=== PATIENT | male | born 2000 | race Caucasian/White ===

== ENCOUNTER 2024-12-27 21:53 | Emergency (ER) | payer OTHER ==
[~2024-12-27] VITALS: Ht 175.3 cm; Wt 70.0 kg
[2024-12-27 22:45] VITALS: O2SAT 99
[2024-12-27] MEDS: HALOPERIDOL LACTATE 5MG/ML VIAL IM ONE (22:45)
[2024-12-27] MEDS: LORAZEPAM 2MG/ML UD SYRINGE IM NR (22:45)
[2024-12-27] MEDS: DIPHENHYDRAMINE 50MG/ML VIAL IM ONE (22:45)
[2024-12-27 22:55] LABS: BASOPHILS % 0.9 % (0.0-2.0); EOSINOPHILS % 0.9 % (0.0-5.0); HEMATOCRIT. 44.5 % (42.0-52.0); HEMOGLOBIN. 15.1 g/dL (14.0-18.0); LYMPHOCYTES % 21.3 % (20.0-50.0); MEAN PLATELET VOLUME 8.0 fl (7.4-10.4); MONOCYTES % 9.3 % (2.0-8.0); NEUTROPHILS % 67.6 % (40.0-76.0); PLATELET 247 x1000/uL (130-400); RED BLOOD CELL COUNT 5.00 mill/uL (4.7-6.1); RED CELL DISTRIBUTION WIDTH 13.4 % (11.6-14.6)
[2024-12-27 23:09] LABS: CREATININE 1.0 mg/dL (0.6-1.3); ETHANOL BLOOD < 10 mg/dL (<10); UREA NITROGEN BLOOD 12 mg/dL (9-23)
[2024-12-27 23:11] LABS: ASPARTATE AMINOTRANSFERASE 17 IU/L (<34); BILIRUBIN DIRECT 0.6 mg/dL (<=3.0); BILIRUBIN TOTAL 1.6 mg/dL (0.1-1.0); PROTEIN TOTAL 7.2 g/dL (6.0-8.3)
[2024-12-27 23:42] LABS: CLARITY URINE CLOUDY (CLEAR); COLOR URINE DARK YELLOW (YELLOW); GLUCOSE URINE 1+ (NEGATIVE); KETONES URINE 2+ (NEGATIVE); LEUKOCYTE ESTERASE URINE NEGATIVE (NEGATIVE); NITRITE URINE NEGATIVE (NEGATIVE); OCCULT BLOOD URINE NEGATIVE (NEGATIVE); PH URINE 6.0 (4.5-8.0); PROTEIN URINE 2+ (NEGATIVE); SPECIFIC GRAVITY URINE 1.031 (1.005-1.030); UROBILINOGEN URINE 1.0 E.U./dL (0.2-1.0)
[2024-12-28 00:05] LABS: *AMPHETAMINES SCREEN URINE NEGATIVE (NEGATIVE); *BARBITURATES SCREEN URINE NEGATIVE (NEGATIVE); *BENZODIAZEPINES SCREEN URINE NEGATIVE (NEGATIVE)
[2024-12-28 00:06] LABS: *COCAINE SCREEN URINE NEGATIVE (NEGATIVE); CANNABINOID URINE SCREEN NEGATIVE (NEGATIVE); ECSTASY MDMA SCREEN URINE NEGATIVE (NEGATIVE); METHADONE URINE SCREEN NEGATIVE (NEGATIVE); OPIATES URINE SCREEN NEGATIVE (NEGATIVE); PHENCYCLIDINE URINE SCREEN NEGATIVE (NEGATIVE)
[2024-12-28 00:29] LABS: BACTERIA URINE NONE SEEN; CALCIUM OXALATE CRYSTALS URINE 1+ /lpf; MUCUS URINE 2+ /lpf (NONE/TRACE); RBC URINE 0-2 /hpf (0-2); SQUAMOUS EPITHELIAL CELL URINE NONE SEEN /lpf (RARE/1+); WBC URINE 0-2 /hpf (0-2)
[2024-12-28 00:31] LABS: FINE GRANULAR CASTS URINE 0-5 /lpf; HYALINE CASTS URINE 0-5 /lpf
[2024-12-28] MEDS: POTASSIUM CHLORIDE 20MEQ/PACKET PO ONE (01:00)
[2024-12-28 01:05] LABS: TROPONIN I HIGH SENSITIVITY 17 ng/L (3.0-53)
[2024-12-28] MEDS: HYDROXYZINE 25MG TABLET PO PRN (11:16)
[2024-12-28] MEDS: RISPERIDONE 0.5MG TABLET PO SCH (11:16)
[2024-12-28] MEDS ORDERED: LORAZEPAM 2MG/ML UD SYRINGE IV NR (14:45)
[2024-12-28] MEDS: HALOPERIDOL LACTATE 5MG/ML VIAL IM ONE (14:53)
[2024-12-28] MEDS: DIPHENHYDRAMINE 50MG/ML VIAL IM ONE (14:53)
[2024-12-28] MEDS: LORAZEPAM 2MG/ML UD SYRINGE IM NR (15:38)
[2024-12-28 17:43] VITALS: BP 111/78; PULSE 98; RESP 18; TEMP 36.9; O2SAT 100
== END 2024-12-28 18:00 ==
LOC: ER 22:25
DX: F23 Brief psychotic disorder (principal); F19.90 Other psychoactive substance use, unspecified, uncomplicated; R07.9 Chest pain, unspecified; Z20.822 Contact with and (suspected) exposure to COVID-19; Z79.899 Other long term (current) drug therapy; Z98.890 Other specified postprocedural states
CPT/HCPCS: 99285; 87426; 80076; 80048; 81003; 80307; 85025; 84484; 36415; 93005; 96372 ×2; G0480; J1200 ×2; J1630 ×2; J2060 ×2; 80305; 80320; 80329